=== PATIENT | male | born 1955 | race Caucasian/White ===

== ENCOUNTER 2018-03-29 10:12 | Emergency (ER) | payer MEDICARE ==
[~2018-03-29] VITALS: Ht 175.3 cm; Wt 77.1 kg
[~2018-03-29 10:12] MED LIST: ACET325 PO; ALBU4 PO; ALBU90OI INH; AZIT250 PO; AZIT500 PO; DULERA 200 MCG/13 GM; Desyrel50 MG PO; EPIN.3I IM; ESCI10 PO; NAPR220 PO; PRED10 PO; PRED20 PO; Prednisone20 MG PO; Robaxin500 MG PO; TRAZ50 PO; Ventolin5 MG/1 ML INH
[2018-03-29 11:03] LABS: BASOPHILS ABSOLUTE AUTO 0.01 K/mm3 (0.00-0.23); BASOPHILS PERCENT AUTO 0 % (0-2); EOSINOPHILS PERCENT AUTO 0 % (0-6); Hematocrit 46.3 % (37.0-53.0); Hemoglobin 15.8 g/dL (13.5-17.5); IMMATURE GRAN ABSOLUTE AUTO 0.04 K/mm3 (0.00-0.10); IMMATURE GRAN PERCENT AUTO 1 % (0-1); LYMPHOCYTES ABSOLUTE AUTO 1.25 K/mm3 (0.84-5.20); LYMPHOCYTES PERCENT AUTO 14 % (21-46); MONOCYTES ABSOLUTE AUTO 0.65 K/mm3 (0.16-1.47); MONOCYTES PERCENT AUTO 7 % (4-13); Mean Corpuscular HGB 32.4 pg (26.0-34.0); Mean Corpuscular HGB Conc 34.1 g/dL (31.5-36.5); Mean Corpuscular Volume 95 fL (80-100); Mean Platelet Volume 10.2 fL (9.1-12.4); NEUTROPHILS PERCENT AUTO 78 % (41-73); Platelet Count 300 K/mm3 (150-400); RDW Coefficient Variation 11.5 % (11.7-14.2); Red Blood Cell Count 4.88 M/mm3 (4.30-5.90); White Blood Cell Count 8.85 K/mm3 (4.00-11.30)
[2018-03-29 11:15] LABS: Alanine Aminotransfer (ALT/SGP 37 U/L (12-78); Albumin, Blood 3.5 g/dL (3.4-5.0); Albumin/Globulin Ratio 0.9 (0.8-1.8); Alk Phos 101 U/L (50-136); Anion Gap 9 mmol/L (6-16); Aspartate Aminotrans (AST/SGOT 44 U/L (12-37); Bilirubin, Total 0.9 mg/dL (0.1-1.0); Blood Urea Nitrogen 18 mg/dL (8-24); Bun/Creatinine Ratio 19.7 (12.0-20.0); CO2, Blood 27 mmol/L (21-32); Calcium, Blood 8.8 mg/dL (8.5-10.1); Chloride, Blood 101 mmol/L (98-108); Creatinine, Blood 0.91 mg/dL (0.60-1.20); Globulin, Blood 4.1 g/dL (2.2-4.0); Glomerular Filtration Rate >60 (60-); Glucose, Blood 118 mg/dL (70-99); Potassium, Blood 4.2 mmol/L (3.5-5.5); Sodium, Blood 137 mmol/L (136-145); Total Protein, Blood 7.6 g/dL (6.4-8.2)
[2018-03-29] MEDS ORDERED: Kristalose20 GM PO (13:48)
== END 2018-03-29 14:03 | disposition home or self-care (01) ==
LOC: ER 10:12
PROVIDERS: Emergency Medicine
DX: K59.00 Constipation, unspecified (principal); S22.41XD Multiple fractures of ribs, right side, subsequent encounter for fracture with routine healing; J82 Pulmonary eosinophilia, not elsewhere classified; Z88.8 Allergy status to other drugs, medicaments and biological substances; Z88.1 Allergy status to other antibiotic agents; Z79.899 Other long term (current) drug therapy; Z79.51 Long term (current) use of inhaled steroids; J45.909 Unspecified asthma, uncomplicated; W11.XXXD Fall on and from ladder, subsequent encounter
CPT/HCPCS: 36415; 74177; 80053; 83690; 85025; 99284-25; J7120; Q9967

== ENCOUNTER → 2019-06-07 | Outpatient (CLI) | payer MEDICARE ==
[~2019-06-07] MED LIST changes: +Kristalose20 GM PO
== END ==
LOC: PLD 08:18 → LAB SHORT 08:18
DX: D48.5 Neoplasm of uncertain behavior of skin (principal)
CPT/HCPCS: 88305

== ENCOUNTER → 2020-05-29 | Outpatient (CLI) | payer MEDICARE | END | disposition home or self-care (01) | LOC: PLD 14:17 → LAB SHORT 14:17 | DX: C44.219 Basal cell carcinoma of skin of left ear and external auricular canal (principal); D48.5 Neoplasm of uncertain behavior of skin | CPT/HCPCS: 88305 ==

== ENCOUNTER → 2021-03-28 | Outpatient (CLI) | payer MEDICARE | LOC: LAB 11:29 → LAB SHORT 11:29 | DX: D48.5 Neoplasm of uncertain behavior of skin (principal); Z88.1 Allergy status to other antibiotic agents; Z88.7 Allergy status to serum and vaccine; Z88.8 Allergy status to other drugs, medicaments and biological substances | CPT/HCPCS: 88305 ==

== ENCOUNTER 2022-02-14 08:35 | Day surgery (SDC) | payer MEDICARE ==
[~2022-02-14] VITALS: Ht 175.3 cm; Wt 75.6 kg
[2022-02-14] MEDS ORDERED: Flomax0.4 MG (08:52)
[2022-02-14] MEDS ORDERED: PRAV20 (08:52)
[2022-02-14] MEDS ORDERED: FASENRA30 MG/1 ML (08:52)
== END 2022-02-14 11:25 | disposition home or self-care (01) ==
LOC: ORSCSDS 08:35
PROVIDERS: Student in an Organized Health Care Education/Training Program
PROC: 0DBL8ZX Excision of Transverse Colon, Via Natural or Artificial Opening Endoscopic, Diagnostic (ICD-10-PCS; principal; 2022-02-14 10:00)
PROC: 0DBK8ZX Excision of Ascending Colon, Via Natural or Artificial Opening Endoscopic, Diagnostic (ICD-10-PCS; principal; 2022-02-14 10:00)
PROC: 0DBH8ZX Excision of Cecum, Via Natural or Artificial Opening Endoscopic, Diagnostic (ICD-10-PCS; principal; 2022-02-14 10:00)
PROC: 0DBN8ZX Excision of Sigmoid Colon, Via Natural or Artificial Opening Endoscopic, Diagnostic (ICD-10-PCS; principal; 2022-02-14 10:00)
DX: Z12.11 Encounter for screening for malignant neoplasm of colon (principal); Z86.010 Personal history of colon polyps; D12.2 Benign neoplasm of ascending colon; D12.0 Benign neoplasm of cecum; D12.3 Benign neoplasm of transverse colon; K63.5 Polyp of colon; K57.30 Diverticulosis of large intestine without perforation or abscess without bleeding; K64.8 Other hemorrhoids; J45.909 Unspecified asthma, uncomplicated; E78.5 Hyperlipidemia, unspecified; N40.0 Benign prostatic hyperplasia without lower urinary tract symptoms; Z79.899 Other long term (current) drug therapy
CPT/HCPCS: 88305; J2704; J7120

== ENCOUNTER 2025-04-19 22:49 | Emergency (ER) | payer MEDICARE ==
[~2025-04-19] VITALS: Ht 175.3 cm; Wt 77.1 kg
[~2025-04-19 22:49] MED LIST changes: +FASENRA30 MG/1 ML; +Flomax0.4 MG; +PRAV20
[2025-04-19 22:59] VITALS: BP 126/97
[2025-04-19 23:45] LABS: BASOPHILS ABSOLUTE AUTO 0.01 K/mm3 (0.00-0.23); BASOPHILS PERCENT AUTO 0 % (0-2); EOSINOPHILS ABSOLUTE AUTO 0.01 K/mm3 (0.00-0.68); EOSINOPHILS PERCENT AUTO 0 % (0-6); Hematocrit 45.9 % (37.0-53.0); Hemoglobin 16.1 g/dL (13.5-17.5); IMMATURE GRAN ABSOLUTE AUTO 0.02 K/mm3 (0.00-0.10); IMMATURE GRAN PERCENT AUTO 0 % (0-1); LYMPHOCYTES ABSOLUTE AUTO 1.53 K/mm3 (0.84-5.20); LYMPHOCYTES PERCENT AUTO 23 % (21-46); MONOCYTES ABSOLUTE AUTO 0.28 K/mm3 (0.16-1.47); MONOCYTES PERCENT AUTO 4 % (4-13); Mean Corpuscular HGB Conc 35.1 g/dL (31.5-36.5); Mean Corpuscular Volume 92 fL (80-100); NEUTROPHILS ABSOLUTE AUTO 4.81 K/mm3 (1.96-9.15); NEUTROPHILS PERCENT AUTO 72 % (41-73); NRBC ABSOLUTE 0.00 K/mm3 (0.00-0.02); NRBC Auto 0.0 /100 WBC (0.0-0.2); Platelet Count 263 K/mm3 (150-400); RDW Coefficient Variation 12.0 % (11.7-14.2); RDW Standard Deviation 40.1 fL (35.1-46.3)
[2025-04-19] MEDS ORDERED: Ipratropium/Albuterol SulF 2.5-0.5MG/3 ML Amp INH ONE (23:55)
[2025-04-19 23:59] LABS: Alanine Aminotransfer (ALT/SGP 42.0 U/L (12-78); Albumin, Blood 3.8 g/dL (3.4-5.0); Albumin/Globulin Ratio 1.1 (0.8-1.8); Anion Gap 8.0 mmol/L (3-11); Aspartate Aminotrans (AST/SGOT 29.0 U/L (12-37); Bilirubin, Total 0.5 mg/dL (0.1-1.0); Blood Urea Nitrogen 19.0 mg/dL (8-24); CO2, Blood 25.0 mmol/L (21-32); Calcium, Blood 9.4 mg/dL (8.5-10.1); Chloride, Blood 107.0 mmol/L (98-108); Creatinine, Blood 0.85 mg/dL (0.60-1.20); Globulin, Blood 3.5 g/dL (2.2-4.0); Glucose, Blood 138.0 mg/dL (70-99); Potassium, Blood 4.0 mmol/L (3.5-5.5); Sodium, Blood 136.0 mmol/L (136-145); Total Protein, Blood 7.3 g/dL (6.4-8.2)
[2025-04-20 01:03] LABS: CORONAVIRUS COVID-19 AG Negative (NEGATIVE)
[2025-04-20] MEDS ORDERED: Prednisone20 MG PO (01:33)
== END 2025-04-20 02:19 | disposition home or self-care (01) ==
LOC: ER 22:49
PROVIDERS: Emergency Medicine; Student in an Organized Health Care Education/Training Program
DX: J45.901 Unspecified asthma with (acute) exacerbation (principal); J82.83 Eosinophilic asthma; Z88.8 Allergy status to other drugs, medicaments and biological substances; Z88.1 Allergy status to other antibiotic agents; Z79.899 Other long term (current) drug therapy
CPT/HCPCS: 71046; 80053; 84484; 85025; 87428-QW; 93005; 93010; 96374; 99285; J2919

== ENCOUNTER 2025-06-01 01:46 | Day surgery (SDC) | payer MEDICARE ==
[~2025-06-01 01:46] MED LIST changes: +Cyclobenzaprine5 MG PO; +EZETIMIBE10 M6 PO; +NEBULIZER
[2025-06-01] MEDS ORDERED: BENRALIZUMAB 30 MG/ML SC SCH (06:00)
[2025-06-01] MEDS ORDERED: [UNRECOGNIZED DRUG - OTHER] SC SCH (06:00)
[2025-06-01 10:05] VITALS: BP 139/85
== END 2025-06-01 10:13 | disposition home or self-care (01) ==
LOC: ATC 01:46
DX: J45.50 Severe persistent asthma, uncomplicated (principal); J82.83 Eosinophilic asthma; J30.1 Allergic rhinitis due to pollen; J30.89 Other allergic rhinitis; N40.0 Benign prostatic hyperplasia without lower urinary tract symptoms; Z79.899 Other long term (current) drug therapy
CPT/HCPCS: 96372; J0517

== ENCOUNTER 2025-07-05 02:45 | Day surgery (SDC) | payer MEDICARE ==
[2025-07-05] MEDS ORDERED: [UNRECOGNIZED DRUG - OTHER] SC SCH (06:00)
[2025-07-05] MEDS ORDERED: BENRALIZUMAB 30 MG/ML SC SCH (06:00)
[2025-07-05 10:58] VITALS: BP 132/86
== END 2025-07-05 10:58 | disposition home or self-care (01) ==
LOC: ATC 02:45
DX: J45.50 Severe persistent asthma, uncomplicated (principal); J82.83 Eosinophilic asthma
CPT/HCPCS: 96372; J0517